=== PATIENT | female | born 1980 | race Caucasian/White ===

== ENCOUNTER 2020-10-12 06:03 | Day surgery (SDC) | payer OTHER ==
[~2020-10-12] VITALS: Ht 165.1 cm; Wt 77.1 kg
[~2020-10-12 06:03] MED LIST: AMPICILLIN SOD/SULBACTAM SOD 3 GM in D5W MINI-BAG PLUS 100 ML IV ONE; IBUP200C25 PO; LIDOCAINE 1% MDV 20ML VIAL SQ PRN; LR 1,000 ML IV ONE; METH10CO PO; dexameTHASONE 4 MG/ML 1ML VIAL (J1100 PER 1MG) IV ONE; medical marijuana PO
[2020-10-12] MEDS ORDERED: fentaNYL 100 MCG/2 ML INJECTION (J3010) As Ordered ONE ×2 (07:08→09:44)
[2020-10-12] MEDS ORDERED: MIDAZOLAM INJ 2MG/2ML VIAL (J2250 PER 1MG) As Ordered ONE (07:08)
[2020-10-12] MEDS ORDERED: PHENYLephrine HCL 500 MCG/5 ML (100MCG/ML) SYRINGE (J2370) As Ordered ONE (07:09)
[2020-10-12] MEDS ORDERED: ePHEDrine SULFATE 25 MG/5 ML(5MG/ML) SYRINGE As Ordered ONE (07:09)
[2020-10-12] MEDS ORDERED: LIDOCAINE 2% 100MG/5ML SDV (FOR ANES.) As Ordered ONE (07:09)
[2020-10-12] MEDS ORDERED: ROCURONIUM BROMIDE 50 MG/5 ML VIAL As Ordered ONE (07:09)
[2020-10-12] MEDS ORDERED: propofoL 200 MG/20 ML VIAL As Ordered ONE (07:09)
[2020-10-12] MEDS ORDERED: SUCCINYLCHOLINE 100 MG/5 ML SYRINGE (J0330) As Ordered ONE (07:10)
[2020-10-12] MEDS ORDERED: LIDOCAINE 2% W/ EPINEPHRINE 1.7 ML DENTAL INJ As Ordered ONE ×2 (07:15→07:40)
[2020-10-12] MEDS ORDERED: MEPIVACAINE HCL 3 % 1.7 ML DENTAL CARTRIDGE (CARBOCAINE) (J0670) As Ordered ONE (07:15)
[2020-10-12] MEDS ORDERED: dexameTHASONE 4 MG/ML 1ML VIAL (J1100 PER 1MG) As Ordered ONE (07:18)
[2020-10-12] MEDS ORDERED: ONDANSETRON 4MG/2ML VIAL As Ordered ONE ×2 (07:18→09:44)
[2020-10-12] MEDS ORDERED: GLYCOPYRROLATE INJ 0.2 MG/ML 2 ML VIAL As Ordered ONE (08:52)
[2020-10-12] MEDS ORDERED: NEOSTIGMINE 10MG/10ML VIAL (J2710 PER 0.5MG) As Ordered ONE (08:52)
[2020-10-12] MEDS ORDERED: oxyCODONE 5MG TAB As Ordered ONE ×2 (09:43→10:26)
--- NOTE | 2020-10-12 09:49 | RO ---
OPERATIVE NOTE DATE OF OPERATION: 10/12/2020 SURGEON: Conor Thomas DMD, MD PREOPERATIVE DIAGNOSES: 1. Severe dental anxiety, history of opioid abuse. 2. Hopeless and carious remaining dentition including teeth #3, 6, 7, 8, 9, 10, 11, 14, 15, 18, 19, 20, 21, 22, 23, 24, 25, 26, 27, 28, 29 and 31. POSTOPERATIVE DIAGNOSIS: Status post: 1. Severe dental anxiety, history of opioid abuse. 2. Hopeless and carious remaining dentition including teeth #3, 6, 7, 8, 9, 10, 11, 14, 15, 18, 19, 20, 21, 22, 23, 24, 25, 26, 27, 28, 29 and 31. PROCEDURE PERFORMED: Full mouth extraction namely extraction of all the aforementioned teeth. ANESTHESIA USED: General endotracheal anesthesia via nasal SHELTON. SPECIMEN: Teeth for gross only. INDICATIONS FOR SURGERY: Donita is a pleasant 39-year-old female who was referred to me by her dentist for evaluation for extraction of all the remaining teeth which are carious and hopeless. Clinical examination reveals she has history of opioid abuse as well as severe dental anxiety and unfavorable airway for office-based anesthesia. Therefore, I gave her the options of nitrous oxide in the office versus general anesthesia in operating room setting and Donita elected to have the latter performed. All the risks, benefits and alternatives to the proposed treatment were given to her and she elected to proceed. History and physical was performed and is in the patient's chart. Informed consent was gone over with the patient and is also signed in the patient's chart. DESCRIPTION OF PROCEDURE: The patient presented to preop holding area, any last minute questions were addressed. Her COVID test was negative, her test was negative. At this point the informed consent was updated. She was taken back to the operating room. She was laid supine on the operating room table. Ulnar nerve protectors were placed, noninvasive cardiac monitors were applied. At that point the patient underwent general anesthesia and was intubated with nasal SHELTON. She was then prepped and draped in usual sterile fashion. Time out procedure was performed to identify the procedure, patient and any other precautions. She was given antibiotics and steroids preoperatively in the IV. At this point moist throat pack was inserted into the patient's oropharynx followed by administration of 8 carpules of 2% Lidocaine with 1:100,000 Epinephrine as local infiltrations and blocks. A full thickness flap was released, teeth sites #3, 6, 11, 14, 15, 18, 19, 20, 21, 22, 27, 28, 29, and 31. A buccal bone in trough fashion was removed with Surgitome to facilitate luxation and delivery of the teeth. Forceps were then used to luxate the teeth and remove the teeth without any incident. All the sockets were curetted and irrigated and flaps were then closed with 3-0 chromic. Attention was then given to teeth #7, 8, 9, 10, 23, 24, 25, 26 which were removed in routine fashion with forceps. All sockets were curetted and irrigated. At this point the immediate dentures that she has brought in from her dentist were tried and the upper denture had excellent stability and was inserted immediately while the lower denture did not have any stability and was removed and given to the patient to take back to her dentist for her first adjustment which is in 24 hours. At this point the oral cavity was irrigated and suctioned, the throat pack was removed. The patient was awakened from general anesthesia and taken back to the PACU under the care of anesthesiologist and my self. ESTIMATED BLOOD LOSS: 20 mL. DRAINS: No drains placed. COMPLICATIONS: None to be mentioned at the time of surgery.
[2020-10-12] MEDS: fentaNYL 100 MCG/2 ML INJECTION (J3010) IV PRN ×4 (09:51→10:34)
[2020-10-12] MEDS: oxyCODONE 5MG TAB PO PRN ×2 (09:57→10:33)
[2020-10-12] MEDS ORDERED: ONDANSETRON 4MG/2ML VIAL IV PRN (10:00)
[2020-10-12] MEDS ORDERED: LR 1,000 ML IV SCH (10:00)
[2020-10-12 10:55] VITALS: BP 141/85
== END 2020-10-12 11:30 | disposition home or self-care (01) ==
LOC: M SDC 06:03 → EDUNIT# 07:30 → M SDC 11:30
PROVIDERS: ATTEND Dentist
DX: K02.9 Dental caries, unspecified (principal); Z79.891 Long term (current) use of opiate analgesic; F17.218 Nicotine dependence, cigarettes, with other nicotine-induced disorders; Z88.5 Allergy status to narcotic agent
CPT/HCPCS: 81025; 88300; D7210; D9223; J0330; J1100; J2250; J2370; J2405; J2710; J3010